=== PATIENT | male | born 1955 | race Caucasian/White ===

== ENCOUNTER 2019-02-08 12:39 | Inpatient (IN) | payer MEDICARE ==
[2019-02-08 13:38] LABS: ADD MAN DIFF? NO
[2019-02-08 13:43] LABS: BASOPHILS % 0.2 % (0.0-2.0); EOSINOPHILS # 0.4 10^3/ul (0.0-0.5); EOSINOPHILS % 4.9 % (0.0-7.0); HEMATOCRIT 23.2 % (42.0-52.0); HEMOGLOBIN 7.5 g/dl (14.0-18.0); LYMPHOCYTES # 0.8 10^3/ul (0.8-2.9); LYMPHOCYTES % 9.7 % (15.0-51.0); MEAN CORPUSCULAR HEMOGLOBIN 31.4 pg (29.0-33.0); MEAN CORPUSCULAR HGB CONC 32.3 g/dl (32.0-37.0); MEAN CORPUSCULAR VOLUME 97.1 fl (82.0-101.0); MEAN PLATELET VOLUME 9.1 fl (7.4-10.4); MONOCYTE # 0.5 10^3/ul (0.3-0.9); MONOCYTES % 5.6 % (0.0-11.0); NEUTROPHIL # 6.5 10^3/ul (1.6-7.5); NEUTROPHILS % 79.1 % (39.0-77.0); PLATELET COUNT 190 10^3/UL (140-415); RED BLOOD COUNT 2.39 10^6/ul (4.70-6.10); RED CELL DISTRIBUTION WIDTH 16.2 % (11.5-14.5)
[2019-02-08 13:43] LABS: WHITE BLOOD COUNT 8.2 10^3/ul (4.8-10.8)
[2019-02-08 14:01] LABS: ANION GAP 10 (5-13); BLOOD UREA NITROGEN 48 mg/dl (7-20); CALCIUM 9.3 mg/dl (8.4-10.2); CARBON DIOXIDE 31 mmol/L (21-31); CHLORIDE 98 mmol/L (97-110); CREATININE 7.16 mg/dl (0.61-1.24); Estimated GFR 8 mL/min (>60); GLUCOSE 125 mg/dl (70-220); POTASSIUM 5.6 mmol/L (3.5-5.1); SODIUM 139 mmol/L (135-144)
[2019-02-08] MEDS: DEXTROSE 50% 50 ML SYRINGE IV (16:38)
[2019-02-08] MEDS: SODIUM POLYSTYRENE 15 GM KIT (POWDER + SORBITOL) PO ×2 (16:39→16:50)
[2019-02-08] MEDS: INSULIN REGULAR, HUMAN 100 UNIT/1 ML 3ML VIAL IVP (16:48)
[2019-02-08] MEDS: ALBUTEROL 0.5% (NEB) 2.5 MG/0.5 ML AMP INH (17:01)
[2019-02-08] MEDS ORDERED: MAGNESIUM HYDROXIDE 30ML CUP PO (17:30)
[2019-02-08] MEDS ORDERED: ONDANSETRON 4 MG INJ IV (17:30)
[2019-02-08] MEDS ORDERED: ACETAMINOPHEN 325 MG TAB PO (17:30)
[2019-02-08] MEDS ORDERED: NACL 0.9% 3 ML SYG IV (17:30)
[2019-02-09] MEDS: GABAPENTIN 300 MG CAP PO ×4 (03:30→21:19)
[2019-02-09] MEDS: PROPRANOLOL 10 MG TAB PO ×3 (03:30→21:19)
[2019-02-09] MEDS: ATORVASTATIN 10 MG TAB PO ×2 (03:30→21:19)
[2019-02-09] MEDS: NA POLYST SULFON 15 GM/60 ML BTL PO (03:30)
[2019-02-09] MEDS: FISH OIL 1,000 MG CAP PO ×2 (03:30→09:19)
[2019-02-09] MEDS: TERAZOSIN 5 MG CAP PO ×2 (03:30→21:19)
[2019-02-09] MEDS: SEVELAMER CARBONATE 2.4 GM PKT PO ×4 (03:30→16:59)
[2019-02-09] MEDS: SOD CHLORIDE 0.9% 1,000 ML IV (05:00)
[2019-02-09] MEDS ORDERED: GLUCAGON 1 MG INJ IM (05:30)
[2019-02-09] MEDS ORDERED: GLUCOSE GEL 15 GRAM TUBE PO ×2 (05:30)
[2019-02-09] MEDS ORDERED: GLUCOSE GEL 15 GRAM TUBE BUCCAL (05:30)
[2019-02-09] MEDS ORDERED: DEXTROSE 50% 50 ML SYRINGE IV ×2 (05:30)
[2019-02-09] MEDS: INSULIN ASPART [NOVOLOG] 3 ML PEN SC ×5 (06:00→21:00)
[2019-02-09] MEDS: PANTOPRAZOLE (EC) 40 MG TAB PO (06:17)
[2019-02-09 07:11] LABS: ADD MAN DIFF? NO
[2019-02-09 07:18] LABS: WHITE BLOOD COUNT 8.4 10^3/ul (4.8-10.8)
[2019-02-09 07:18] LABS: ABNORMAL IP MESSAGE 1; BASOPHILS % 0.2 % (0.0-2.0); EOSINOPHILS # 0.4 10^3/ul (0.0-0.5); EOSINOPHILS % 4.6 % (0.0-7.0); HEMATOCRIT 21.2 % (42.0-52.0); LYMPHOCYTES # 0.8 10^3/ul (0.8-2.9); LYMPHOCYTES % 9.4 % (15.0-51.0); MEAN CORPUSCULAR HEMOGLOBIN 31.8 pg (29.0-33.0); MEAN CORPUSCULAR HGB CONC 32.5 g/dl (32.0-37.0); MEAN CORPUSCULAR VOLUME 97.7 fl (82.0-101.0); MEAN PLATELET VOLUME 9.5 fl (7.4-10.4); MONOCYTE # 0.4 10^3/ul (0.3-0.9); NEUTROPHIL # 6.8 10^3/ul (1.6-7.5); NEUTROPHILS % 80.3 % (39.0-77.0); PLATELET COUNT 176 10^3/UL (140-415); POSITIVE DIFF @See below; RED BLOOD COUNT 2.17 10^6/ul (4.70-6.10); RED CELL DISTRIBUTION WIDTH 16.2 % (11.5-14.5)
[2019-02-09 07:38] LABS: ALANINE AMINOTRANSFERASE 18 IU/L (13-69); ALBUMIN 3.3 g/dl (3.3-4.9); ALBUMIN/GLOBULIN RATIO 1.37; ALKALINE PHOSPHATASE 86 IU/L (42-121); ANION GAP 11 (5-13); ASPARTATE AMINO TRANSFERASE 11 IU/L (15-46); BILIRUBIN,INDIRECT 0.1 mg/dl (0-1.1); BILIRUBIN,TOTAL 0.1 mg/dl (0.2-1.3); BLOOD UREA NITROGEN 57 mg/dl (7-20); CALCIUM 9.4 mg/dl (8.4-10.2); CARBON DIOXIDE 28 mmol/L (21-31); CHLORIDE 101 mmol/L (97-110); Estimated GFR 7 mL/min (>60); GLUCOSE 120 mg/dl (70-220); MAGNESIUM 2.5 mg/dl (1.7-2.5); POTASSIUM 5.3 mmol/L (3.5-5.1); SODIUM 140 mmol/L (135-144); TOTAL PROTEIN 5.7 g/dl (6.1-8.1)
[2019-02-09 07:40] LABS: HEMOGLOBIN 6.9 g/dl (14.0-18.0)
[2019-02-09 08:47] LABS: HEMOGLOBIN A1C 5.7 % (0-5.9)
[2019-02-09] MEDS: AMLODIPINE 10 MG TAB PO (09:19)
[2019-02-09] MEDS: SERTRALINE 50 MG TAB PO (09:19)
[2019-02-09] MEDS: ASCORBIC ACID 500 MG TAB PO (09:19)
[2019-02-09] MEDS: ACETAMINOPHEN 325 MG TAB PO (09:28)
[2019-02-09 10:35] LABS: IMMEDIATE SPIN CROSSMATCH 1 3
[2019-02-09] MEDS: SOD CHLORIDE 0.9% 250 ML IV* (10:45)
[2019-02-09] MEDS ORDERED: SODIUM CHLORIDE 0.9% 1L BAG IV (15:30)
[2019-02-09] MEDS ORDERED: THROMBIN 5000 UNIT VIAL (16:12)
[2019-02-09] MEDS ORDERED: BUPIVACAINE 0.25% (MPF) 30 ML INJ (16:12)
[2019-02-09] MEDS ORDERED: LIDOCAINE 1% (MPF) 30 ML INJ (16:12)
[2019-02-09] MEDS ORDERED: GELATIN SIZE 100 SPONGE (16:12)
[2019-02-09] MEDS ORDERED: POLYMYXIN/BACITRACIN 1L IRRIG (16:13)
[2019-02-09] MEDS ORDERED: NEOSTIGMINE 3 MG/3 ML SYRINGE (18:30)
[2019-02-09] MEDS ORDERED: CEFAZOLIN 1 GM INJ (18:30)
[2019-02-09] MEDS ORDERED: GLYCOPYRROLATE 0.4 MG INJ (18:30)
[2019-02-09] MEDS ORDERED: SEVOFLURANE 15 MIN (18:30)
[2019-02-09] MEDS ORDERED: PROPOFOL 20 ML (18:36)
[2019-02-09] MEDS ORDERED: ROCURONIUM 50 MG INJ (18:36)
[2019-02-09] MEDS ORDERED: LIDOCAINE 2% (SDV) 5 ML INJ (18:36)
[2019-02-09] MEDS ORDERED: FENTAnyl 50 MCG/ML VIAL (18:50)
[2019-02-09] MEDS: HEPARIN 1000 UNITS/ML 10 ML INJ (19:20)
[2019-02-09] MEDS: POLYMYXIN/BACITRACIN 1L IRRIG IRR (19:20)
[2019-02-09] MEDS ORDERED: morphine 2 MG INJ IV ×2 (20:00)
[2019-02-09] MEDS ORDERED: EPHEDrine 25 MG/5 ML SYG IV (20:00)
[2019-02-09] MEDS ORDERED: ALBUTEROL 0.083% (NEB) 2.5 MG/3 ML AMP HHN (20:00)
[2019-02-09] MEDS ORDERED: hydrALAzine 20 MG INJ IV (20:00)
[2019-02-09] MEDS ORDERED: DIPHENHYDRAMINE 50 MG INJ IV (20:00)
[2019-02-09] MEDS ORDERED: MEPERIDINE 25 MG INJ IV (20:00)
[2019-02-09] MEDS ORDERED: ONDANSETRON 4 MG INJ IV (20:00)
[2019-02-09] MEDS ORDERED: LABETALOL HCL 20MG INJ IV (20:00)
[2019-02-09 20:17] LABS: HEPATITIS B SURFACE ANTIGEN NEGATIVE (NEGATIVE)
[2019-02-09 20:34] LABS: HEPATITIS B SURFACE ANTIBODY NEGATIVE (NEGATIVE)
[2019-02-10] MEDS: ACCU-CHEK XX (02:00)
[2019-02-10] MEDS: PANTOPRAZOLE (EC) 40 MG TAB PO (06:11)
[2019-02-10] MEDS: ALBUMIN HUMAN 25% 100 ML IV (07:42)
[2019-02-10] MEDS: INSULIN ASPART [NOVOLOG] 3 ML PEN SC ×4 (07:55→20:56)
[2019-02-10 08:19] LABS: ADD MAN DIFF? NO
[2019-02-10 08:25] LABS: WHITE BLOOD COUNT 7.1 10^3/ul (4.8-10.8)
[2019-02-10 08:25] LABS: ABNORMAL IP MESSAGE 1; BASOPHILS % 0.3 % (0.0-2.0); EOSINOPHILS # 0.2 10^3/ul (0.0-0.5); EOSINOPHILS % 2.1 % (0.0-7.0); HEMATOCRIT 23.7 % (42.0-52.0); HEMOGLOBIN 7.7 g/dl (14.0-18.0); LYMPHOCYTES # 0.4 10^3/ul (0.8-2.9); MEAN CORPUSCULAR HEMOGLOBIN 30.8 pg (29.0-33.0); MEAN CORPUSCULAR HGB CONC 32.5 g/dl (32.0-37.0); MEAN CORPUSCULAR VOLUME 94.8 fl (82.0-101.0); MEAN PLATELET VOLUME 9.9 fl (7.4-10.4); MONOCYTE # 0.4 10^3/ul (0.3-0.9); MONOCYTES % 4.9 % (0.0-11.0); NEUTROPHIL # 6.2 10^3/ul (1.6-7.5); NEUTROPHILS % 87.3 % (39.0-77.0); PLATELET COUNT 142 10^3/UL (140-415); POSITIVE DIFF @See below; RED CELL DISTRIBUTION WIDTH 16.8 % (11.5-14.5)
[2019-02-10] MEDS: SERTRALINE 50 MG TAB PO (08:48)
[2019-02-10] MEDS: SEVELAMER CARBONATE 2.4 GM PKT PO ×3 (08:48→18:03)
[2019-02-10] MEDS: GABAPENTIN 300 MG CAP PO ×3 (08:48→20:42)
[2019-02-10] MEDS: ASCORBIC ACID 500 MG TAB PO (08:48)
[2019-02-10] MEDS: FISH OIL 1,000 MG CAP PO (08:48)
[2019-02-10] MEDS: PROPRANOLOL 10 MG TAB PO ×2 (08:49→20:41)
[2019-02-10 08:50] LABS: ANION GAP 14 (5-13); BLOOD UREA NITROGEN 63 mg/dl (7-20); CALCIUM 8.8 mg/dl (8.4-10.2); CARBON DIOXIDE 24 mmol/L (21-31); CHLORIDE 103 mmol/L (97-110); CREATININE 8.65 mg/dl (0.61-1.24); Estimated GFR 6 mL/min (>60); GLUCOSE 139 mg/dl (70-220); MAGNESIUM 2.5 mg/dl (1.7-2.5); PHOSPHORUS 5.7 mg/dl (2.5-4.9); POTASSIUM 5.5 mmol/L (3.5-5.1); SODIUM 141 mmol/L (135-144)
[2019-02-10] MEDS: AMLODIPINE 10 MG TAB PO (08:50)
[2019-02-10] MEDS: ATORVASTATIN 10 MG TAB PO (20:42)
[2019-02-10] MEDS: TERAZOSIN 5 MG CAP PO (20:43)
[2019-02-11] MEDS: ACCU-CHEK XX (02:00)
[2019-02-11] MEDS: PANTOPRAZOLE (EC) 40 MG TAB PO (05:55)
[2019-02-11 06:12] LABS: ADD MAN DIFF? NO
[2019-02-11 06:18] LABS: WHITE BLOOD COUNT 4.7 10^3/ul (4.8-10.8)
[2019-02-11 06:18] LABS: BASOPHILS % 0.2 % (0.0-2.0); EOSINOPHILS # 0.2 10^3/ul (0.0-0.5); EOSINOPHILS % 3.9 % (0.0-7.0); HEMATOCRIT 23.3 % (42.0-52.0); HEMOGLOBIN 7.6 g/dl (14.0-18.0); LYMPHOCYTES # 0.7 10^3/ul (0.8-2.9); LYMPHOCYTES % 15.5 % (15.0-51.0); MEAN CORPUSCULAR HEMOGLOBIN 31.4 pg (29.0-33.0); MEAN CORPUSCULAR HGB CONC 32.6 g/dl (32.0-37.0); MEAN CORPUSCULAR VOLUME 96.3 fl (82.0-101.0); MEAN PLATELET VOLUME 9.5 fl (7.4-10.4); MONOCYTE # 0.5 10^3/ul (0.3-0.9); MONOCYTES % 10.8 % (0.0-11.0); NEUTROPHIL # 3.2 10^3/ul (1.6-7.5); NEUTROPHILS % 69.2 % (39.0-77.0); PLATELET COUNT 111 10^3/UL (140-415); RED BLOOD COUNT 2.42 10^6/ul (4.70-6.10); RED CELL DISTRIBUTION WIDTH 16.4 % (11.5-14.5)
[2019-02-11 06:49] LABS: ANION GAP 10 (5-13); BLOOD UREA NITROGEN 35 mg/dl (7-20); CALCIUM 8.9 mg/dl (8.4-10.2); CARBON DIOXIDE 29 mmol/L (21-31); CHLORIDE 102 mmol/L (97-110); CREATININE 5.22 mg/dl (0.61-1.24); Estimated GFR 11 mL/min (>60); GLUCOSE 123 mg/dl (70-220); POTASSIUM 4.5 mmol/L (3.5-5.1); SODIUM 141 mmol/L (135-144)
[2019-02-11] MEDS: INSULIN ASPART [NOVOLOG] 3 ML PEN SC ×3 (07:55→17:45)
[2019-02-11] MEDS: SEVELAMER CARBONATE 2.4 GM PKT PO ×3 (08:33→17:38)
[2019-02-11] MEDS: GABAPENTIN 300 MG CAP PO ×2 (08:33→12:23)
[2019-02-11] MEDS: FISH OIL 1,000 MG CAP PO (08:33)
[2019-02-11] MEDS: SERTRALINE 50 MG TAB PO (08:33)
[2019-02-11] MEDS: ASCORBIC ACID 500 MG TAB PO (08:33)
[2019-02-11] MEDS: PROPRANOLOL 10 MG TAB PO (08:35)
[2019-02-11] MEDS: AMLODIPINE 10 MG TAB PO (08:35)
== END 2019-02-11 18:00 | DRG 252 ==
LOC: TEL 02-09 03:17 → E/R 12:39 → TEL 16:31
PROC: 03WY07Z Revision of Autologous Tissue Substitute in Upper Artery, Open Approach (ICD-10-PCS; principal; 2019-02-09 18:29)
PROC: 03CY0ZZ Extirpation of Matter from Upper Artery, Open Approach (ICD-10-PCS; 2019-02-09 18:29)
PROC: 5A1D70Z Performance of Urinary Filtration, Intermittent, Less than 6 Hours Per Day (ICD-10-PCS; 2019-02-09 18:29)
PROC: 30233N1 Transfusion of Nonautologous Red Blood Cells into Peripheral Vein, Percutaneous Approach (ICD-10-PCS; 2019-02-09 18:29)
DX: T82.868A Thrombosis due to vascular prosthetic devices, implants and grafts, initial encounter (principal); N18.6 End stage renal disease; I12.0 Hypertensive chronic kidney disease with stage 5 chronic kidney disease or end stage renal disease; T82.838A Hemorrhage due to vascular prosthetic devices, implants and grafts, initial encounter; Z99.2 Dependence on renal dialysis; E78.5 Hyperlipidemia, unspecified; E87.5 Hyperkalemia
CPT/HCPCS: 36415; 36430; 71045; 80048; 80053; 82962; 83036; 83735; 84100; 84443; 85025; 86706; 86850; 86900; 86901; 86920; 87081; 87340; 90935; 93005; 99285-25; G0378